=== PATIENT | male | born 1985 | race Asian ===

== ENCOUNTER 2017-04-20 03:42 | Emergency (ER) | payer SELFPAY ==
[~2017-04-20] VITALS: Ht 167.6 cm; Wt 52.7 kg
[2017-04-20 03:48] VITALS: BP 137/69; TEMP 97.8
[2017-04-20] MEDS ORDERED: PROTONIX 40MG T40 MG PO (05:05)
[2017-04-20 05:17] VITALS: PULSE 67
== END 2017-04-20 05:17 | disposition home or self-care (01) ==
LOC: COL.ER 03:42
DX: K21.9 Gastro-esophageal reflux disease without esophagitis (principal)

== ENCOUNTER 2020-01-26 07:10 | Day surgery (SDC) | payer SELFPAY ==
[~2020-01-26] VITALS: Ht 167.6 cm; Wt 54.8 kg
[~2020-01-26 07:10] MED LIST: PROTONIX 40MG T40 MG PO
[2020-01-26 07:54] VITALS: BP 113/81; PULSE 72; TEMP 98.1
[2020-01-26] MEDS ORDERED: PRILOSEC 20MG20 MG PO (08:38)
[2020-01-26 08:50] VITALS: BP 111/72; PULSE 79; TEMP 97.8
--- NOTE | 2020-01-26 08:50 | NUR ---
Pt returned to [facility] 3 via cart. SBA to recliner in room. VSS-see flowsheet. present in room. Pt denies wanting to eat or drink at this time. Pt A&O and denies needs or complaints. Call light in reach.
[2020-01-26 09:05] VITALS: BP 104/72; PULSE 72
[2020-01-26 09:20] VITALS: BP 106/70; PULSE 68
--- NOTE | 2020-01-26 09:30 | NUR ---
VSS-see flowsheet. Dr Sheehan in to visit with pt and pts post EGD. Discharge teaching completed, verbalized understanding. IV removed and pressure dressing applied. Pt refused wheelchair and ambulated with staff to exit of hospital for dc home with to drive.
== END 2020-01-26 09:30 | disposition home or self-care (01) ==
LOC: SDCO 07:10
DX: R10.13 Epigastric pain (principal); Z11.59 Encounter for screening for other viral diseases
CPT/HCPCS: J2704; J3010; J7030